=== PATIENT | male | born 1960 | race Two or more races ===

== ENCOUNTER 2024-12-10 06:21 | Emergency (ER) | payer MEDICAID, SELFPAY ==
[2024-12-10 06:34] VITALS: BP 189/109; BP 197/106; PULSE 80; RESP 19; TEMP 37.4; O2SAT 96
--- NOTE | 2024-12-10 06:38 | XR_ITS ---
Examination: CT abdomen and pelvis without contrast. Coronal 3-D reconstructions. Sagittal 2-D reconstructions. Date and time of exam:December 10, 2024, 0714 hours, comparison April 30, 2010 INDICATIONS: Left lower abdomen and right lower abdomen pain onset today CTDI: vol (mGy): 13 DLP: (mGycm): 871. Technique: Axial images of the abdomen have been obtained, 3 mm slice thickness Intravenous contrast material has not been administered. Low dose protocols were performed. One or more of the following dose reduction techniques were used; automated exposure control, adjustment of the mA and/or KV according to patient size, use of iterative reconstruction technique. Findings: No focal liver or splenic lesion No gallstones No pancreatic or adrenal mass Bilateral 1 mm renal calculi Minimal left hydronephrosis secondary to 2 mm distal left ureterovesical junction calculus Aorta normal size No bowel obstruction No pericecal inflammatory change Contracted urinary bladder with mild urinary bladder wall thickening Transverse prostate dimension 4.8 cm Mild osteopenia IMPRESSION: Tiny bilateral renal calculi Minimal left hydronephrosis secondary to 2 mm distal left ureteral vesicle junction calculus
--- NOTE | 2024-12-10 06:38 | PD.EDRME ---
Rapid Medical Screening Exam RME Arrival date/time: 12/10/24 06:21 64-year-old male with a history of hyperlipidemia presents to the emergency room with a chief complaint of left lower quadrant 10 out of 10 abdominal pain x 2 days I have greeted and performed a focused initial assessment of this patient. A comprehensive ED assessment and evaluation of the patient, analysis of all test results, and completion of the medical decision making process will be conducted by additional ED providers. Chief Complaint: Abdominal Pain Time Seen by Provider: 12/10/24 06:29 Vital signs: Vital Signs Temperature 99.3 F 12/10/24 06:34 Pulse Rate 80 12/10/24 06:34 Respiratory Rate 19 12/10/24 06:34 Blood Pressure 197/106 H 12/10/24 06:34 Pulse Oximetry (%) 96 12/10/24 06:34 Oxygen Delivery Method Room Air 12/10/24 06:34 Vital signs reviewed by provider: Yes
[2024-12-10 07:10] LABS: Collection Type, Urine Clean Catch
[2024-12-10 07:18] LABS: Basophils # (Auto) 0.0 Thou/mm3 (0.0-0.2); Basophils % (Auto) 0 % (0-2.5); Eosinophils # (Auto) 0.3 Thou/mm3 (0.0-0.5); Eosinophils % (Auto) 2 % (0-10); Hematocrit 50.0 % (41.0-53.0); Hemoglobin 16.1 g/dL (13.5-16.0); Immature Granulocytes Auto 0.05 Thou/mm3 (0.00-0.00); Lymphocytes # (Auto) 2.5 Thou/mm3 (1.0-4.8); Lymphocytes % (Auto) 21 % (10-50); Mean Corpuscular HGB Conc 32.2 g/dl (31.0-37.0); Mean Corpuscular Hemoglobin 30.8 pg (25.0-35.0); Mean Corpuscular Volume 96 fL (80-100); Monocytes # (Auto) 0.9 Thou/mm3 (0.0-0.8); Monocytes % (Auto) 8 % (0-12); Neutrophils # (Auto) 7.9 Thou/mm3 (1.8-7.7); Neutrophils % (Auto) 68 % (37-80); Nucleated Red Blood Cell # 0.00 Thou/mm3 (0.00-0.00); Nucleated Red Blood Cell % 0 /100 WBC (0); Platelet Count 165 Thou/mm3 (140-440); RDW Standard Deviation 50.4 fL (35.1-43.9); Red Blood Count 5.22 Miln/mm3 (4.50-5.90); White Blood Count 11.6 Thou/mm3 (3.8-10.6)
[2024-12-10 07:25] VITALS: BP 212/114; PULSE 80; RESP 18; TEMP 37.3; O2SAT 95
[2024-12-10] MEDS: HYDROcodone/APAP 5/325 TABLET 1 TAB PO ×2 (07:25→10:08)
[2024-12-10 07:26] VITALS: BP 212/114; PULSE 78
[2024-12-10] MEDS: ONDANSETRON ODT 4 MG TABRAP PO (07:26)
[2024-12-10 07:33] LABS: Bilirubin,Urine Negative (Negative); Blood,Urine 3+ (Negative); Clarity,Urine Clear (Clear/Hazy); Color,Urine Lt-Yellow (Lt Yel-Yel); Glucose, Urine Negative (Negative); Ketones,Urine Negative (Negative); Leukocyte Esterase,Urine Negative (Negative); Nitrite,Urine Negative (Negative); PH,Urine 5.5 (5.0-7.0); Protein,Urine Trace (Neg - Trace); RBC,Urine 19 /hpf (0-3); Specific Gravity,Urine 1.019 (1.001-1.035); Squamous Epithelial Cell,Urine < 1 /hpf (0-5); Urobilinogen,Urine Negative mg/dL (0.0-1.0); WBC,Urine 1 /hpf (0-5)
[2024-12-10 07:40] LABS: Alanine Aminotransferase 24 U/L (10-49); Albumin, Serum 4.5 gm/dL (3.4-4.8); Albumin/Globulin Ratio 1.6 (1.2-2.2); Alkaline Phosphatase 65 U/L (46-116); Anion Gap 12 (7-16); Aspartate Amino Transferase 23 U/L (0-34); BUN/Creatinine Ratio 14 Ratio (12-20); Bilirubin,Total 0.7 mg/dL (0.3-1.2); Blood Urea Nitrogen 18 mg/dL (9-23); Calcium 8.5 mg/dL (8.3-10.6); Calcium (Corrected) 8.5 mg/dL (8.5-10.1); Carbon Dioxide 25.0 mMol/L (20.0-31.0); Chloride 107 mMol/L (98-107); Creatinine (Component) 1.3 mg/dL (0.6-1.3); Globulin 2.9 gm/dL (2.3-3.5); Glucose 148 mg/dL (74-106); Lipase 34 U/L (12-53); Osmolality,Calculated 291 (275-295); Potassium 3.8 mMol/L (3.4-5.1); Sodium 144 mMol/L (136-145); Total Protein 7.4 gm/dL (5.7-8.2); eGFR > 60 See Note
[2024-12-10 08:39] VITALS: BP 175/101; BP 185/99; PULSE 78; RESP 18; O2SAT 95
[2024-12-10 09:03] VITALS: BP 184/110; PULSE 75; RESP 18; TEMP 37.2; O2SAT 95
--- NOTE | 2024-12-10 09:27 | PD.EDABDPN ---
ED Abdominal Pain RME/HPI General Chief Complaint: Abdominal Pain Stated complaint: LEFT ABD AREA PAIN Time seen by provider: 12/10/24 06:29 Arrival date/time: 12/10/24 06:21 Limitations: no limitations RME / HPI RME / HPI narrative: 12/10/24 06:21 64-year-old male with a history of hyperlipidemia presents to the emergency room with a chief complaint of left lower quadrant 10 out of 10 abdominal pain x 2 days I have greeted and performed a focused initial assessment of this patient. A comprehensive ED assessment and evaluation of the patient, analysis of all test results, and completion of the medical decision making process will be conducted by additional ED providers. DR. VENTURA MAIN ED EVALUATION: 64-year-old male with past medical history of hypertension and hyperlipidemia presents to the Emergency Department with complaint of left flank pain described as tightness and aching, which began around 3 AM today. He is accompanied by his . Patient denies history of kidney stones. Related Data Home Medications ?Medication ?Instructions ?Recorded ?Confirmed diphenhydramine HCl 25 mg capsule 25 mg PO [id number] ##0 04/30/10 06/07/18 famotidine 20 mg tablet 20 mg PO BID ##0 04/30/10 06/07/18 omeprazole 20 mg capsule,delayed 20 mg PO DAILY ##0 04/30/10 06/07/18 release simvastatin 20 mg tablet 20 mg PO DAILY ##0 04/30/10 06/07/18 Previous Rx's ?Medication ?Instructions ?Recorded ibuprofen 600 mg tablet 600 mg PO Q6H PRN pain #30 tabs 12/10/24 tamsulosin 0.4 mg capsule 0.4 mg PO QDAY #14 caps 12/10/24 Allergies Allergy/AdvReac Type Severity Reaction Status Date / Time No Known Allergies Allergy Verified 12/10/24 06:21 Review of Systems Review of Systems Systems Reviewed: All systems reviewed, normal except as documented Past Medical History Past Medical History CARDIAC: Positive Hypercholesterolemia and Hypertension ENDOCRINE: Positive Hypothyroidism Social History SMOKING STATUS: Never smoker SUBSTANCE USE: does not use ALCOHOL: Never ED Exam General Limitations: Present no limitations General appearance: Present alert and in no apparent distress Head Head exam: Present atraumatic, normocephalic and normal inspection Eye Eye exam: Present normal appearance, PERRL and EOMI ENT ENT exam: Present normal exam, normal oropharynx and mucous membranes moist Neck Neck exam: Present normal inspection, full ROM and trachea midline Chest Chest inspection: Present normal inspection and symmetric chest wall rise Respiratory Respiratory exam: Present normal lung sounds bilaterally Cardiovascular Cardiovascular exam: Present regular rate, normal rhythm and normal heart sounds Abdominal Exam Abdominal exam: Present tenderness (left abdominal tenderness) and normal bowel sounds Extremities Exam Extremities exam: Present normal inspection and full ROM Back Exam Back exam: Present normal inspection and full ROM Neurological Exam Neurological exam: Present alert, oriented X3 and CN II-XII intact Psychiatric Psychiatric exam: Present normal affect and normal mood Skin Skin exam: Present warm, dry, intact and normal color Course Quality Measures none Orders Category Date Time Status CT abdomen pelvis wo con Stat Exams 12/10/24 06:38 Completed CBC Stat Lab 12/10/24 06:47 Completed CMP [Comprehensive Metabolic Panel] Stat Lab 12/10/24 06:47 Completed Lipase Stat Lab 12/10/24 06:47 Completed UA [Urinalysis] Stat Lab 12/10/24 07:00 Completed Urine Culture Stat Lab 12/10/24 07:00 Received HYDROcodone*/APAP 5/325 [[place] 5/325] Med 12/10/24 06:38 Discontinued 1 tab PO X1 ONE HYDROcodone*/APAP 5/325 [[place] 5/325] Med 12/10/24 09:59 Discontinued 1 tab PO X1 ONE Ketorolac Inj [Toradol Inj] Med 12/10/24 09:47 Discontinued 30 mg IM X1 ONE Ondansetron Odt [Zofran Odt] Med 12/10/24 06:57 Discontinued 4 mg PO X1 ONE Ondansetron Odt [Zofran Odt] Med 12/10/24 09:59 Discontinued 4 mg PO X1 ONE Tamsulosin HCl [Flomax] Med 12/10/24 09:47 Discontinued 0.4 mg PO X1 ONE cloNIDine HCL [Catapres] Med 12/10/24 06:39 Discontinued 0.1 mg PO X1 ONE Vital Signs Vital signs: Vital Signs Temperature 99.3 F 12/10/24 06:34 Pulse Rate 80 12/10/24 06:34 Respiratory Rate 19 12/10/24 06:34 Blood Pressure 197/106 H 12/10/24 06:34 Pulse Oximetry (%) 96 12/10/24 06:34 Oxygen Delivery Method Room Air 12/10/24 06:34 Abdominal Pain MDM MDM Narrative MDM Narrative:: I, Tamika Leon, am scribing for and in the presence of Dr. Ventura. Patient data External records reviewed:: [facility] previous records Clinical information provided by:: patient and spouse Social determinants that could affect healthcare access:: none Patient has the following chronic illnesses:: hypertension and hyperlipidemia How is presenting disease/condition affected by chronic disease/condition?: exacerbated by Evaluation data The following diagnostics were reviewed and interpreted by me:: lab results and radiology exam(s) Lab and/or radiology exams considered but not ordered:: none Interpretation Summary: Procedure(s): CT abdomen pelvis wo con Accession Number(s): [id number] cc: Josué Garcia; Wilman Lewis MD; Paul Shafer MD~ Examination: CT abdomen and pelvis without contrast. Coronal 3-D reconstructions. Sagittal 2-D reconstructions. Date and time of exam:December 10, 2024, 0714 hours, comparison April 30, 2010 INDICATIONS: Left lower abdomen and right lower abdomen pain onset today CTDI: vol (mGy): 13 DLP: (mGycm): 871. Technique: Axial images of the abdomen have been obtained, 3 mm slice thickness Intravenous contrast material has not been administered. Low dose protocols were performed. One or more of the following dose reduction techniques were used; automated exposure control, adjustment of the mA and/or KV according to patient size, use of iterative reconstruction technique. Findings: No focal liver or splenic lesion No gallstones No pancreatic or adrenal mass Bilateral 1 mm renal calculi Minimal left hydronephrosis secondary to 2 mm distal left ureterovesical junction calculus Aorta normal size No bowel obstruction No pericecal inflammatory change Contracted urinary bladder with mild urinary bladder wall thickening Transverse prostate dimension 4.8 cm Mild osteopenia IMPRESSION: Tiny bilateral renal calculi Minimal left hydronephrosis secondary to 2 mm distal left ureteral vesicle junction calculus Dictated By: Paul Shafer MD Medications / Prescriptions Medications or Prescriptions considered but not ordered:: none Medication administrations:: Medication Administration History Discontinued Medications Hydrocodone Bitart/Acetaminophen (Hydrocodone/Apap 5/325 Tablet) 1 tab PO X1 ONE Stop: 12/10/24 06:39 Last Admin: 12/10/24 07:25 Dose: 1 tab Documented By: GETACHEW Hydrocodone Bitart/Acetaminophen (Hydrocodone/Apap 5/325 Tablet) 1 tab PO X1 ONE Stop: 12/10/24 10:00 Last Admin: 12/10/24 10:08 Dose: 1 tab Documented By: GETACHEW Clonidine (Clonidine Hcl 0.1 Mg Tablet) 0.1 mg PO X1 ONE Stop: 12/10/24 06:40 Last Admin: 12/10/24 07:26 Dose: 0.1 mg Documented By: GETACHEW Ketorolac Tromethamine (Ketorolac Inj 30 Mg/Ml Vial) 30 mg IM X1 ONE Stop: 12/10/24 09:48 Last Admin: 12/10/24 10:08 Dose: 30 mg Documented By: GETACHEW Ondansetron HCl (Ondansetron Odt 4 Mg Tabrap) 4 mg PO X1 ONE; Protocol Stop: 12/10/24 06:58 Last Admin: 12/10/24 07:26 Dose: 4 mg Documented By: GETACHEW Ondansetron HCl (Ondansetron Odt 4 Mg Tabrap) 4 mg PO X1 ONE; Protocol Stop: 12/10/24 10:00 Last Admin: 12/10/24 10:08 Dose: Not Given Documented By: GETACHEW Non-Admin Reason: Patient Refused Tamsulosin HCl (Tamsulosin Hcl 0.4 Mg Capsule) 0.4 mg PO X1 ONE Stop: 12/10/24 09:48 Last Admin: 12/10/24 10:08 Dose: 0.4 mg Documented By: GETACHEW see above Consultations Consultation(s) initiated? (list below): No Diagnosis Differential diagnosis abdominal pain: other (nephrolithiasis, musculoskeletal strain, and pyelonephritis) Most likely diagnosis given after review of the tests above:: Left ureteral stone Admission Indicated Admission indicated?: not indicated Admission Request Was there a request for admission?: No Disposition Plan Disposition Plan: Discharge Discharge Attestation Discharge Attestation: The patient and all family members were given an opportunity to ask questions and understood the discharge instructions. Discharge instructions specifically effects, indications for sooner follow up or return to the emergency department, and the expected course of current diagnosis. Patient condition: Stable Discharge Plan Plan Patient Disposition: HOME (Self Care) Prescriptions/Referrals Prescriptions/Med Rec: New tamsulosin 0.4 mg capsule 0.4 mg PO QDAY Qty: 14 0RF ibuprofen 600 mg tablet 600 mg PO Q6H PRN (Reason: pain) Qty: 30 0RF No Action famotidine 20 MG tablet 20 mg PO BID Qty: 0 simvastatin 20 MG tablet 20 mg PO DAILY Qty: 0 diphenhydramine HCl 25 MG capsule 25 mg PO [id number] Qty: 0 omeprazole 20 MG capsule,delayed release(DR/EC) 20 mg PO DAILY Qty: 0 Referrals: Wilman Lewis MD [Primary Care Provider] - In 1 week Problem List Clinical Impression: Left ureteral stone Patient/Caregiver Discharge Instructions Education Materials: ED Kidney Stone w/ Colic Print Language: Indonesian Stand Alone Forms: Sherry Award Info., Work/School Release, Patient Portal Info Letter
[2024-12-10] MEDS: TAMSULOSIN HCL 0.4 MG CAPSULE PO (10:08)
[2024-12-10] MEDS: KETOROLAC INJ 30 MG/ML VIAL IM (10:08)
[2024-12-10 11:44] VITALS: BP 135/70; PULSE 75; RESP 18; TEMP 36.6; O2SAT 95
== END 2024-12-10 11:45 | disposition home or self-care (01) ==
PROVIDERS: Nurse Practitioner Family; Emergency Provider Emergency Medicine; PCP Family Medicine
DX: N13.2 Hydronephrosis with renal and ureteral calculous obstruction (principal)
CPT/HCPCS: 36415; 74176; 80053; 81001; 83690; 85025; 87086; 96372; 99283; J1885; Q0162; A9270